=== PATIENT | male | born 1990 | race Caucasian/White ===

== ENCOUNTER 2018-03-11 15:00 | Emergency (ER) | payer OTHER ==
[2018-03-11 15:12] VITALS: RESP 18; TEMP 98.7
[2018-03-11] MEDS ORDERED: KETOROLAC 30 MG/ML 1 ML VIAL IM STA (15:27)
--- NOTE | 2018-03-11 15:33 | ED ---
General Adult HPI - General Chief complaint: Back Pain/Injury Stated complaint: Fall/Back Pain Time Seen by Provider: 03/11/18 15:18 Source: patient, RN notes reviewed Mode of arrival: ambulatory Limitations: no limitations - History of Present Illness Initial comments: 27-year-old male presents for low back pain. Patient was walking on stilts at a formerly [facility], 1928[facility]1983, these were 10-12 inches off the ground. States he was walking on them for some time and when he got off the stilts he began to develop progressive low back pain. Denies any fall or specific injury. Describes it as bilateral lower pain slightly worse on the right. This occurred approximately one hour prior to arrival. He has not taken any medication for this. Denies any sensory changes in the lower extremities. Denies any bowel or bladder issues. He has been ambulatory. - Related Data Previous Rx's Medication Instructions Recorded Ibuprofen [Motrin] 600 mg PO Q8HR PRN #24 tab 03/11/18 Allergies Allergy/AdvReac Type Severity Reaction Status Date / Time No Known Allergies Allergy Verified 03/11/18 15:11 Review of Systems ROS Statement: Those systems with pertinent positive or pertinent negative responses have been documented in the HPI. ROS Other: All systems not noted in ROS Statement are negative. Past Medical History Past Medical History: No Reported History History of Any Multi-Drug Resistant Organisms: None Reported Past Surgical History: No Surgical Hx Reported Past Psychological History: Anxiety Smoking Status: Never smoker Past Alcohol Use History: None Reported Past Drug Use History: None Reported General Exam Limitations: no limitations General appearance: alert, in no apparent distress Head exam: Present: atraumatic, normocephalic Eye exam: Present: normal appearance, PERRL, EOMI ENT exam: Present: normal exam Neck exam: Present: normal inspection. Absent: tenderness, meningismus Respiratory exam: Present: normal lung sounds bilaterally. Absent: respiratory distress, wheezes Cardiovascular Exam: Present: regular rate, normal rhythm GI/Abdominal exam: Present: soft. Absent: distended, tenderness Extremities exam: Present: normal inspection, normal capillary refill. Absent: pedal edema Back exam: Present: normal inspection, full ROM, paraspinal tenderness ( Bilateral lumbar paraspinal tenderness, no midline tenderness, there is some associated muscle spasm.) Neurological exam: Present: alert, oriented X3, CN II-XII intact, normal gait, reflexes normal. Absent: motor sensory deficit Psychiatric exam: Present: normal affect, normal mood Skin exam: Present: warm, dry, intact. Absent: cyanosis, diaphoretic Course Vital Signs 03/11/18 15:10 Temperature 98.7 F Pulse Rate 86 Respiratory 18 Rate Blood Pressure 124/72 O2 Sat by Pulse 97 Oximetry Medical Decision Making - Medical Decision Making 27-year-old male with musculoskeletal back pain. No alarming features on history or physical exam. Patient will try anti-inflammatories. He will follow -up with his primary care physician. Disposition Clinical Impression: Mechanical back pain, Strain of lumbar region Disposition: HOME SELF-CARE Condition: Good Instructions: Acute Low Back Pain (ED) Prescriptions: Ibuprofen [Motrin] 600 mg PO Q8HR PRN #24 tab PRN Reason: Pain Is patient prescribed a controlled substance at d/c from ED?: No Referrals: None,Stated [Primary Care Provider] - 1-2 days Alee Ramos MD [REFERRING] - 1-2 days Time of Disposition: 15:31
[2018-03-11 15:55] VITALS: BP 126/80; PULSE 77
== END 2018-03-11 15:54 | disposition home or self-care (01) ==
LOC: EC 15:00
DX: S39.012A Strain of muscle, fascia and tendon of lower back, initial encounter (principal); X50.9XXA Other and unspecified overexertion or strenuous movements or postures, initial encounter; Y93.89 Activity, other specified; Y92.89 Other specified places as the place of occurrence of the external cause
CPT/HCPCS: 99283; 96372; J1885

== ENCOUNTER 2018-03-24 12:26 | Emergency (ER) | payer OTHER ==
[2018-03-24 12:41] VITALS: BP 122/81; PULSE 70; RESP 18; TEMP 98.1
--- NOTE | 2018-03-24 13:19 | ED ---
General Adult HPI - General Chief complaint: Abdominal Pain Stated complaint: ABDOMINAL PAIN Time Seen by Provider: 03/24/18 12:52 Source: patient, RN notes reviewed Mode of arrival: ambulatory Limitations: no limitations - History of Present Illness Initial comments: Patient 27-year-old male presented to the emergency room today with a chief complaint of right-sided abdominal pain. He does admit that he's been expressing some pain over the last week. He does admit the last few days and seems without worse. He states he thought was muscular as she was seen for back pain 2 weeks ago. He states his back is feeling much better. He does admit that he's felt this pain at times worse after eating certain foods. Patient also admits that when he takes a deep breath he's felt pain on the right side breaking up into the chest. He denies any recent travel. Denies any leg pain or swelling. At times has felt nauseous. Describes the pain as a dull ache. States he did try to go to urgent care but was told that he was having pain in that he could not be seen there and she complains emergency room. Denies any other past medical history. Patient denies any recent fever, chills, shortness of breath, chest pain, back pain, vomiting, numbness or tingling, dysuria or hematuria, constipation or diarrhea, headaches or visual changes, or any other complaints. - Related Data Previous Rx's Medication Instructions Recorded Ibuprofen [Motrin] 600 mg PO Q8HR PRN #24 tab 03/11/18 Allergies Allergy/AdvReac Type Severity Reaction Status Date / Time No Known Allergies Allergy Verified 03/24/18 12:38 Review of Systems ROS Statement: Those systems with pertinent positive or pertinent negative responses have been documented in the HPI. ROS Other: All systems not noted in ROS Statement are negative. Past Medical History Past Medical History: No Reported History History of Any Multi-Drug Resistant Organisms: None Reported Past Surgical History: No Surgical Hx Reported Past Psychological History: Anxiety Smoking Status: Never smoker Past Alcohol Use History: None Reported Past Drug Use History: None Reported General Exam - General Exam Comments Initial Comments: General: The patient is awake and alert, in no distress, and does not appear acutely ill. Eye: Pupils are equal, round and reactive to light, extra-ocular movements are intact. No nystagmus. There is normal conjunctiva bilaterally. No signs of icterus. Ears, nose, mouth and throat: There are moist mucous membranes and no oral lesions. Neck: The neck is supple, there is no tenderness or JVD. Cardiovascular: There is a regular rate and rhythm. No murmur, rub or gallop is appreciated. Respiratory: Lungs are clear to auscultation, respirations are non-labored, breath sounds are equal. No wheezes, stridor, rales, or rhonchi. Gastrointestinal: Soft, non-distended, non-tender abdomen without masses or organomegaly noted. There is no rebound or guarding present. No CVA tenderness. Musculoskeletal: Normal ROM, no tenderness. Strength 5/5. Sensation intact. Pulses equal bilaterally 2+. Neurological: A&O x 3. CN II-XII intact, There are no obvious motor or sensory deficits. Coordination appears grossly intact. Speech is normal. Skin: Skin is warm and dry and no rashes or lesions are noted. Psychiatric: Cooperative, appropriate mood & affect, normal judgment. Limitations: no limitations Course Vital Signs 03/24/18 12:38 Temperature 98.1 F Pulse Rate 70 Respiratory 18 Rate Blood Pressure 122/81 O2 Sat by Pulse 98 Oximetry Medical Decision Making - Medical Decision Making Patient was seen and examined here in the emergency room. Recommended to have ultrasound, chest x-ray and lab work. Patient then told nursing staff prior to starting IV that he did work 2 PM and felt that he would be better coming back tomorrow when he had more time. Patient did sign out AMA. Disposition Clinical Impression: Abdominal pain Disposition: Left Against Medical Advice Condition: Undetermined Is patient prescribed a controlled substance at d/c from ED?: No Referrals: None,Stated [Primary Care Provider] - 1-2 days Rah Nick DO [STAFF PHYSICIAN] - 1-2 days Silvia Cortez MD [STAFF PHYSICIAN] - 1-2 days Time of Disposition: 13:20
== END 2018-03-24 13:47 | disposition left against medical advice (07) ==
LOC: EC 12:26
DX: R10.9 Unspecified abdominal pain (principal); R07.9 Chest pain, unspecified; R11.0 Nausea; M54.9 Dorsalgia, unspecified
CPT/HCPCS: 99283

== ENCOUNTER 2018-03-24 23:01 | Emergency (ER) | payer OTHER ==
[2018-03-24 23:12] VITALS: TEMP 98
--- NOTE | 2018-03-24 23:53 | ED ---
Abdominal Pain HPI - General Chief Complaint: Abdominal Pain Stated Complaint: return from earlier right side abdominal pain Time Seen by Provider: 03/24/18 23:38 Source: patient, RN notes reviewed Mode of arrival: ambulatory Limitations: no limitations - History of Present Illness Initial Comments: This is a 27-year-old male who presents to the emergency department with chief complaint of right-sided abdominal pain. Patient states that he has been experiencing right-sided abdominal pain for the past one week. He states that over the past 2 days he feels that the pain has increased in intensity. He states that the pain is a dull achy sensation and only occurs when he takes a deep breath in. He states that he sometimes also feels the pain when he is standing but does not feel it when he is sitting in hunched over. He denies nausea or vomiting, diarrhea or constipation, fevers or chills. He denies chest pain or shortness of breath. He states that 2 weeks ago he threw out his back and was evaluated at the emergency department. He states that initially he believed that the right side pain was musculoskeletal in nature. However, he states that the pain has not improved. Patient was seen in the emergency department earlier today and left AMA because he had to return to work. - Related Data Previous Rx's Medication Instructions Recorded Ibuprofen [Motrin] 600 mg PO Q8HR PRN #24 tab 03/11/18 Allergies Allergy/AdvReac Type Severity Reaction Status Date / Time No Known Allergies Allergy Verified 03/24/18 23:11 Review of Systems ROS Statement: Those systems with pertinent positive or pertinent negative responses have been documented in the HPI. ROS Other: All systems not noted in ROS Statement are negative. Past Medical History Past Medical History: No Reported History History of Any Multi-Drug Resistant Organisms: None Reported Past Surgical History: No Surgical Hx Reported Past Psychological History: Anxiety Smoking Status: Never smoker Past Alcohol Use History: None Reported Past Drug Use History: None Reported General Exam - General Exam Comments Initial Comments: General: Awake and alert, well-developed; in no apparent distress. HEENT: Head atraumatic, normocephalic. Pupils are equal, round and reactive to light. Extraocular movements intact. Oropharynx moist without erythema or exudate. Neck: Supple. Normal ROM. Cardiovascular: Regular rate and rhythm. No murmurs, rubs or gallops. Chest symmetrical. Respiratory: Lungs clear to auscultation bilaterally. No wheezes, rales or rhonchi. Normal respiratory effort with no use of accessory muscles. Abdomen: Soft, non-tender, non-distended. No rigidity, rebound or guarding. Normal bowel sounds in all 4 quadrants. Musculoskeletal: Normal ROM, no tenderness bilateral upper and lower extremities. Ambulating normally. Skin: [place], warm and dry without rashes or lesions. Neurological: Alert and oriented x3. CN II-XII grossly intact. Speech is fluent and answers are appropriate. No focal neuro deficits. Psychiatric: Normal mood and affect. No overt signs of depression or anxiety noted. Limitations: no limitations Course Vital Signs 03/24/18 03/25/18 03/25/18 23:10 00:30 01:51 Temperature 98.0 F Pulse Rate 72 69 98 Respiratory 16 16 15 Rate Blood Pressure 121/79 111/69 111/64 O2 Sat by Pulse 98 99 100 Oximetry - Reevaluation(s) Reevaluation #1: At this time, patient is resting comfortably in bed. We did discuss the laboratory and imaging studies. I offered patient's computed tomography scan of the abdomen and pelvis and he would like to have this performed. 03/25/18 00:48 Medical Decision Making - Medical Decision Making This is a 27-year-old male who presents to the emergency department with chief complaint of right side pain. He describes the pain as dull and aching. This has been present for one week, however patient reports an increase in intensity. Patient does state that the pain is positional and is only present when he takes a deep breath or when he is standing. He denies any associated symptoms. CBC, CMP, coags and UA were unremarkable. D-dimer was within normal limits. X-ray KUB and chest x-ray revealed no acute abnormalities. These findings were discussed with patient. He stated that he was still experiencing the pain. Patient was offered a computed tomography scan of the abdomen and pelvis and he stated that he did want to undergo the imaging. Computed tomography scan abdomen and pelvis revealed no acute abnormalities. Patient's vital signs are stable and he is in no acute distress. He will be discharged home at this time. Recommended following up with primary care provider. He is in agreement and voices understanding. All questions answered. - Lab Data Result diagrams: 03/24/18 23:45 03/24/18 23:45 Lab Results 03/24/18 03/24/18 03/24/18 Range/Units 23:45 23:45 23:45 WBC 4.8 (3.8-10.6) k/uL RBC 5.33 (4.30-5.90) m/uL Hgb 16.3 (13.0-17.5) gm/dL Hct 48.2 (39.0-53.0) % MCV 90.4 (80.0-100.0) fL MCH 30.5 (25.0-35.0) pg MCHC 33.7 (31.0-37.0) g/dL RDW 12.9 (11.5-15.5) % Plt Count 233 (150-450) k/uL Neutrophils % 54 % Lymphocytes % 34 % Monocytes % 7 % Eosinophils % 2 % Basophils % 1 % Neutrophils # 2.6 (1.3-7.7) k/uL Lymphocytes # 1.7 (1.0-4.8) k/uL Monocytes # 0.3 (0-1.0) k/uL Eosinophils # 0.1 (0-0.7) k/uL Basophils # 0.0 (0-0.2) k/uL D-Dimer <0.17 (<0.60) mg/L FEU Sodium 144 (137-145) mmol/L Potassium 4.0 (3.5-5.1) mmol/L Chloride 103 (98-107) mmol/L Carbon Dioxide 27 (22-30) mmol/L Anion Gap 14 mmol/L BUN 18 (9-20) mg/dL Creatinine 0.90 (0.66-1.25) mg/dL Est GFR (CKD-EPI)AfAm >90 (>60 ml/min/1.73 sqM) Est GFR (CKD-EPI)NonAf >90 (>60 ml/min/1.73 sqM) Glucose 86 (74-99) mg/dL Calcium 10.0 (8.4-10.2) mg/dL Total Bilirubin 0.3 (0.2-1.3) mg/dL AST 40 (17-59) U/L ALT 80 H (21-72) U/L Alkaline Phosphatase 86 (38-126) U/L Total Protein 7.4 (6.3-8.2) g/dL Albumin 4.6 (3.5-5.0) g/dL Amylase 65 (30-110) U/L Lipase 61 (23-300) U/L Urine Color Urine Appearance (Clear) Urine pH (5.0-8.0) Ur Specific [place] (1.001-1.035) Urine Protein (Negative) Urine Glucose (UA) (Negative) Urine Ketones (Negative) Urine Blood (Negative) Urine Nitrite (Negative) Urine Bilirubin (Negative) Urine Urobilinogen (<2.0) mg/dL Ur Leukocyte Esterase (Negative) 03/24/18 Range/Units 23:45 WBC (3.8-10.6) k/uL RBC (4.30-5.90) m/uL Hgb (13.0-17.5) gm/dL Hct (39.0-53.0) % MCV (80.0-100.0) fL MCH (25.0-35.0) pg MCHC (31.0-37.0) g/dL RDW (11.5-15.5) % Plt Count (150-450) k/uL Neutrophils % % Lymphocytes % % Monocytes % % Eosinophils % % Basophils % % Neutrophils # (1.3-7.7) k/uL Lymphocytes # (1.0-4.8) k/uL Monocytes # (0-1.0) k/uL Eosinophils # (0-0.7) k/uL Basophils # (0-0.2) k/uL D-Dimer (<0.60) mg/L FEU Sodium (137-145) mmol/L Potassium (3.5-5.1) mmol/L Chloride (98-107) mmol/L Carbon Dioxide (22-30) mmol/L Anion Gap mmol/L BUN (9-20) mg/dL Creatinine (0.66-1.25) mg/dL Est GFR (CKD-EPI)AfAm (>60 ml/min/1.73 sqM) Est GFR (CKD-EPI)NonAf (>60 ml/min/1.73 sqM) Glucose (74-99) mg/dL Calcium (8.4-10.2) mg/dL Total Bilirubin (0.2-1.3) mg/dL AST (17-59) U/L ALT (21-72) U/L Alkaline Phosphatase (38-126) U/L Total Protein (6.3-8.2) g/dL Albumin (3.5-5.0) g/dL Amylase (30-110) U/L Lipase (23-300) U/L Urine Color Yellow Urine Appearance Clear (Clear) Urine pH 6.5 (5.0-8.0) Ur Specific [place] 1.027 (1.001-1.035) Urine Protein Trace H (Negative) Urine Glucose (UA) Negative (Negative) Urine Ketones Negative (Negative) Urine Blood Negative (Negative) Urine Nitrite Negative (Negative) Urine Bilirubin Negative (Negative) Urine Urobilinogen 3.0 (<2.0) mg/dL Ur Leukocyte Esterase Negative (Negative) - EKG Data EKG Comments: 0:51:06. Sinus bradycardia. Ventricular rate 56 bpm, UT interval 148, QRS duration 92, QT/QTc 402/387. No evidence of ST segment elevation or depression. - Radiology Data Radiology results: report reviewed, image reviewed X-ray KUB impression: Nonacute abdomen. Chest x-ray impression: Normal chest. No change. CT abdomen and pelvis findings: Lung bases are clear. There is no pleural effusion. Heart size is normal. Liver, spleen, pancreas, gallbladder appear normal. Bile ducts are not dilated. There is no adrenal mass. Kidneys show satisfactory contrast opacity occasion. There is no hydronephrosis. Ureters are nondilated. There is no retroperitoneal adenopathy. There is no ascites. Appendix appears normal. I see no intestinal wall thickening. There are no dilated loops. Bladder distends smoothly. There is no evidence of a pelvic mass. The bony structures are intact. There is no ascites. There is no sign of free air. Impression: Negative computed tomography scan abdomen and pelvis. Normal appendix. No evidence or renal mass or obstruction. Disposition Clinical Impression: Abdominal pain Disposition: HOME SELF-CARE Condition: Good Instructions: Abdominal Pain (ED), Musculoskeletal Pain (ED) Additional Instructions: Please follow up with primary care provider within 1-2 days. Return to emergency department if symptoms should worsen or any concerns arise. Is patient prescribed a controlled substance at d/c from ED?: No Referrals: None,Stated [Primary Care Provider] - 1-2 days Time of Disposition: 01:55
[2018-03-25 00:02] LABS: Appearance,Urine Clear (Clear); Bilirubin,Urine Negative (Negative); Blood,Urine Negative (Negative); Color,Urine Yellow; Glucose,Urine (UA) Negative (Negative); Ketones,Urine Negative (Negative); Leukocyte Esterase,Urine Negative (Negative); Nitrite,Urine Negative (Negative); PH, Urine 6.5 (5.0-8.0); Protein,Urine Trace (Negative); Specific Gravity,Urine 1.027 (1.001-1.035)
[2018-03-25 00:03] LABS: Basophils % (A) 1 %; Eosinophils # (A) 0.1 k/uL (0-0.7); Eosinophils % (A) 2 %; HCT 48.2 % (39.0-53.0); HGB 16.3 gm/dL (13.0-17.5); Lymphocytes # (A) 1.7 k/uL (1.0-4.8); Lymphocytes % (A) 34 %; MCH 30.5 pg (25.0-35.0); MCHC 33.7 g/dL (31.0-37.0); MCV 90.4 fL (80.0-100.0); Mean Platelet Volume 6.5; Monocytes # (A) 0.3 k/uL (0-1.0); Monocytes % (A) 7 %; Neutrophils # (A) 2.6 k/uL (1.3-7.7); Neutrophils % (A) 54 %; Platelet Count 233 k/uL (150-450); RBC 5.33 m/uL (4.30-5.90); RDW 12.9 % (11.5-15.5); WBC 4.8 k/uL (3.8-10.6)
--- NOTE | 2018-03-25 00:13 | XR ---
EXAMINATION TYPE: XR chest 2V DATE OF EXAM: 03/25/2018 COMPARISON: 03/05/2013 HISTORY: Right upper quadrant pain TECHNIQUE: Frontal and lateral views of the chest are obtained. FINDINGS: Heart and mediastinum are normal. Lungs are clear. Diaphragm is normal. Bony thorax appear s normal. IMPRESSION: Normal chest. No change.
--- NOTE | 2018-03-25 00:14 | XR ---
EXAMINATION TYPE: XR KUB DATE OF EXAM: 03/25/2018 COMPARISON: NONE HISTORY: Right upper quadrant pain TECHNIQUE: 2 views FINDINGS: There is no sign of intestinal obstruction or pneumoperitoneum. Fecal pattern is normal. Th ere is no sign of a mass. Lung bases are clear. There are no pathologic calcifications over the kidne ys. IMPRESSION: Nonacute abdomen.
[2018-03-25 00:17] LABS: ALT 80 U/L (21-72); AST 40 U/L (17-59); Albumin 4.6 g/dL (3.5-5.0); Alkaline Phosphatase 86 U/L (38-126); Amylase 65 U/L (30-110); Anion Gap 14 mmol/L; Blood Urea Nitrogen 18 mg/dL (9-20); Carbon Dioxide 27 mmol/L (22-30); Chloride 103 mmol/L (98-107); Glucose 86 mg/dL (74-99); Lipase 61 U/L (23-300); Sodium 144 mmol/L (137-145); Total Bilirubin 0.3 mg/dL (0.2-1.3); Total Protein 7.4 g/dL (6.3-8.2)
--- NOTE | 2018-03-25 01:43 | CT ---
EXAMINATION TYPE: CT abdomen pelvis w con DATE OF EXAM: 03/25/2018 COMPARISON: NONE HISTORY: Rt flank pain CT DLP: 1653.20 mGycm Automated exposure control for dose reduction was used. TECHNIQUE: Helical acquisition of images was performed from the lung bases through the pelvis. CONTRAST: Performed without Oral Contrast and with IV Contrast, patient injected with 100 mL of Isovue 300. FINDINGS: Lung bases are clear. There is no pleural effusion. Heart size is normal. Liver spleen pancreas gallbladder appear normal. Bile ducts are not dilated. There is no adrenal mass . Kidneys show satisfactory contrast opacification. There is no hydronephrosis. Ureters are not dilat ed. There is no retroperitoneal adenopathy. There is no ascites. Appendix appears normal. I see no in testinal wall thickening. There are no dilated loops. Bladder distends smoothly. There is no evidence of a pelvic mass. The bony structures are intact. There is no ascites. There is no sign of free air. IMPRESSION: NEGATIVE CT SCAN OF THE ABDOMEN AND PELVIS. NORMAL APPENDIX. NO EVIDENCE OF RENAL MASS OR OBSTRUCTION .
[2018-03-25 01:53] VITALS: BP 111/64; PULSE 98; RESP 15
== END 2018-03-25 02:17 | disposition home or self-care (01) ==
LOC: EC 23:01
DX: R10.9 Unspecified abdominal pain (principal); R00.1 Bradycardia, unspecified
CPT/HCPCS: 36415; 93005; 85379; 80053; 82150; 83690; 85025; 81003; 71046; 74018; 74177; 99284; Q9967